=== PATIENT | male | born 1945 | race Caucasian/White ===

== ENCOUNTER → 2020-08-29 | Outpatient (CLI) | payer OTHER ==
[2020-08-29 15:21] LABS: CREATININE 0.8 mg/dL (0.7-1.3)
== END ==
LOC: CAT 06-14 08:28
PROVIDERS: ATTEND Family Medicine
DX: K76.0 Fatty (change of) liver, not elsewhere classified (principal); K73.0 Chronic persistent hepatitis, not elsewhere classified; N40.0 Benign prostatic hyperplasia without lower urinary tract symptoms; I51.7 Cardiomegaly; R14.0 Abdominal distension (gaseous)

== ENCOUNTER → 2021-01-31 | Outpatient (CLI) | payer OTHER | LOC: ULTRA 10:20 | PROVIDERS: ATTEND Family Medicine | DX: N28.1 Cyst of kidney, acquired (principal); R16.1 Splenomegaly, not elsewhere classified; R79.89 Other specified abnormal findings of blood chemistry ==

== ENCOUNTER → 2021-02-01 | Outpatient (CLI) | payer OTHER | LOC: MRI 13:10 | PROVIDERS: ATTEND Family Medicine | DX: K57.30 Diverticulosis of large intestine without perforation or abscess without bleeding (principal); R17 Unspecified jaundice; R74.8 Abnormal levels of other serum enzymes ==

== ENCOUNTER → 2021-03-19 | Outpatient (CLI) | payer OTHER ==
[~2021-03-19] VITALS: Ht 177.8 cm; Wt 86.6 kg
[~2021-03-19] MED LIST: CARVEDILOL12.5 MG PO; FLOMAX0.4 MG PO
[2021-03-19 10:51] VITALS: BP 127/71
[2021-03-19 11:04] LABS: INR 1.11
[2021-03-19 13:09] VITALS: BP 138/74
== END | disposition home or self-care (01) ==
LOC: RAD 09:29
PROVIDERS: Radiology Diagnostic Radiology; ATTEND Internal Medicine Hematology & Oncology
DX: Z45.2 Encounter for adjustment and management of vascular access device (principal); C25.9 Malignant neoplasm of pancreas, unspecified; I10 Essential (primary) hypertension; Z98.890 Other specified postprocedural states; Z79.899 Other long term (current) drug therapy; Z86.718 Personal history of other venous thrombosis and embolism; Z79.01 Long term (current) use of anticoagulants